=== PATIENT | female | born 1955 | race Caucasian/White ===

== ENCOUNTER 2016-09-07 13:53 | Day surgery (SDC) | payer OTHER ==
[~2016-09-07] VITALS: Ht 152.4 cm; Wt 52.2 kg
[~2016-09-07 13:53] MED LIST: 0.9% Sodium Chloride 1,000 ML IV SCH; ASA/1TAB6 PO; BENZ200C44 PO; BISA-67 PO; CHOL500050 PO; CYA1000I IM; DEXL30CA3 PO; DICL100G8 TOPICAL; EPIN0.3P17 IJ; FLUO10TA PO; FLUT12AE8 IH; FUR20 PO; HYDR-656 PO; HYOS0.1216 SL; LEVA15HF5 IH; LEVO15TA5 PO; LIDOCAINE 5% TD; LIFI1DRO OP; LORA0.5T PO; LOVA10TA PO; MELA3TAB46 PO; MIRA25TA PO; OMEG500C PO; OXYB5TAB10 PO; OXYC1TAB24 PO; PHEN-773 PO; PROP15DR27 OP; ROB500 PO; Sodium Chloride LOK Flush 10 mL Syringe IV PRN; TIZA2CAP9 PO; TOR15I IM; TRAM50TA2 PO; TROS60CA4 PO; UBID200C2 PO; [UNRECOGNIZED DRUG - CODE] MC; fentaNYL-PF 50 mCg/mL 2 mL Inj IVPUSH PRN
[2016-09-07 14:19] VITALS: BP 111/70; PULSE 68; RESP 14; O2SAT 99
[2016-09-07] MEDS ORDERED: DOXY50CA2 PO (14:56)
[2016-09-07 15:46] VITALS: BP 92/57; PULSE 62; RESP 14; O2SAT 95
[2016-09-07 15:56] VITALS: BP 97/57; PULSE 67; RESP 16; O2SAT 100
[2016-09-07 16:06] VITALS: BP 95/57; PULSE 63; RESP 16; O2SAT 98
--- NOTE | 2016-09-08 01:25 | ENDO ---
[address] [address] ENDOSCOPY PROCEDURE PATIENT: HARI GRAMAJO : 1955 MR#: [id number] ADMIT: 09/07/2016 JOB ID: [id number] DATE OF PROCEDURE: 09/07/2016 PRIMARY PROVIDER: Antwon Marquez MD. PROCEDURE: Esophagogastroduodenoscopy with biopsy. INDICATIONS: A 61-year-old female reporting for Voss's surveillance. EQUIPMENT: [id number]. SEDATION: 1. Versed 7 mg. 2. Fentanyl 125 mcg. COMPLICATIONS: None identified. PROCEDURE INFORMATION: After the risks and benefits were explained, written and verbal informed consent was obtained. The patient was brought into the endoscopy suite and placed into the left lateral decubitus position. Sedation was achieved using the above-stated medications with the addition of oxygen via nasal cannula. The scope was introduced into the mouth through the bite block and advanced to the second portion of the duodenum. The scope was slowly withdrawn to carefully examine the mucosa for any defects or lesions. Retroflexed views were accomplished in the stomach. The stomach was decompressed. The scope was removed from the patient who tolerated the procedure well. FINDINGS: 1. Duodenum: No significant pathology identified from the bulb through to the second portion. 2. Stomach: No outlet obstruction. No ulcers. No mass lesions. J-shaped stomach. Retroflexed views of the LES unremarkable. I did not appreciate any significant polyps, which was especially noteworthy in that she has previously demonstrated gastric adenoma. 3. Esophagus: The squamocolumnar junction generally correlated with the top of the gastric folds. The GEJ was judged to be at approximately 34 cm from the incisors. There were a couple of areas in the seven o'clock and one o'clock location that appeared to be ever so subtle extensions of the salmon-colored mucosa up into the tubular esophagus perhaps by a few mm. The seven o'clock location was much easier to get the forceps on, but even this was quite challenging because of the respiratory motion. The remainder of the esophagus was unremarkable. The patient does have a fairly tense upper esophageal sphincter mechanism and it was challenging for the patient to properly relax and swallow to allow us in. ENDOSCOPIC DIAGNOSES: 1. Subtle sliding hiatal hernia (not mentioned above). 2. Extremely short segment of Voss's. 3. Otherwise, visually unremarkable esophagogastroduodenoscopy. RECOMMENDATIONS: 1. Await histopathology. 2. Repeat surveillance EGD in three years if no dysplasia is identified. 3. The patient is encouraged to continue proton pump inhibitor. 4. Followup in my office on clinical efficacy.
--- NOTE | 2016-09-09 18:24 | PATH ---
SURGICAL PATHOLOGY Attending Physician:Nissa Bingham CASE STATUS: Signed Out PATIENT NAME: HARI GRAMAJO PID: [id number] : 1955 DATE COLLECTED:09/07/2016 00:00 SPECIMEN: Esophagus, Biopsy CLINICAL HISTORY: 1). GASTRO-ESOPHAGEAL JUNCTION BIOPSY FINAL DIAGNOSIS: Gastroesophageal Junction, Biopsy: Inflamed portion of columnar epithelium; negative for intestinal metaplasia/Voss's metaplasia. No dysplasia identified. No squamous mucosa identified for evaluation. ICD10: K22.7 GROSS DESCRIPTION: The specimen is received in one formalin filled container labeled with the patient's name, sublabeled " GEJ " and consists of a 0.2 x 0.2 x 0.2 CM portion of tissue which is entirely submitted in one cassette. 09/08/2016 [facility] ICD-9 CODES: CPT CODES: 1: 81449 Electronically Signed Out Veronica Johnson MD [facility]ology [facility] [address], [place] [address] Technical component performed at [facility], [address] [place] [address] Ave[address], [place], [address]
== END 2016-09-07 23:59 | disposition home or self-care (01) ==
LOC: END 13:53
PROVIDERS: ATTEND Internal Medicine Gastroenterology
DX: K22.70 Barrett's esophagus without dysplasia (principal); K44.9 Diaphragmatic hernia without obstruction or gangrene; R73.03 Prediabetes; J45.909 Unspecified asthma, uncomplicated; F41.9 Anxiety disorder, unspecified; G62.9 Polyneuropathy, unspecified; F32.9 Major depressive disorder, single episode, unspecified; K21.9 Gastro-esophageal reflux disease without esophagitis; M81.0 Age-related osteoporosis without current pathological fracture; M79.7 Fibromyalgia; Z79.51 Long term (current) use of inhaled steroids
CPT/HCPCS: 43239; 99153; J7030

== ENCOUNTER 2016-12-06 15:50 | Emergency (ER) | payer OTHER ==
[~2016-12-06] VITALS: Ht 162.6 cm; Wt 52.7 kg
[~2016-12-06 15:50] MED LIST changes: -0.9% Sodium Chloride 1,000 ML IV SCH; +DOXY50CA2 PO; +HYOS-22 SL; -HYOS0.1216 SL; -Sodium Chloride LOK Flush 10 mL Syringe IV PRN; -fentaNYL-PF 50 mCg/mL 2 mL Inj IVPUSH PRN
[2016-12-06 15:54] VITALS: BP 131/71; PULSE 77; RESP 16; O2SAT 100
[2016-12-06 17:25] LABS: BASOPHILS % (AUTO) 0.1 % (0-3); EOSINOPHILS % (AUTO) 2.3 % (0-5); MONOCYTES % (AUTO) 11.4 % (4-12); Mean Corpuscular Volume 84.6 fL (81-100); NEUTROPHILS % (AUTO) 57.6 % (40-74); Platelet Count 187 bil/L (150-400)
[2016-12-06 17:49] LABS: Lipase 28 U/L (13-60); Magnesium 2.2 mg/dL (1.6-2.6)
[2016-12-06 17:52] LABS: TROPONIN T < 0.010 ug/L (0.0-0.011)
--- NOTE | 2016-12-06 18:06 | ED.REPORT ---
HPI-General Illness Date of Service Dec 06, 2016 ED Provider: Phu Hardy MD 61 y/o female with a hx of cervical fusion, pre-diabetes, asthma and high cholesterol presents to the ED complaining of worsening dizziness for the last week. She gets these dizzy spells while she is resting and reading. The pt called [facility] complaining of "blacking out" daily and was advised to seek care. She also complains of diaphoresis for the last 2 months, which started after her upper endoscopy. She states "I get hot at night that wakes me up and I have to keep an ice bag on my neck when sleeping". The pt saw her PCP for diaphoresis and was told she is having a systemic inflammatory response. She was advised to take Ibuprofen, which did not help significantly. She also reports fatigue, high blood sugar of 162 yesterday, nausea and headache. She denies weight loss, cough, vomiting, diarrhea and fever. She had an MRI yesterday due to neck pain pain post cervical fusion surgery 2 years ago. The pt takes methocarbamol and tramadol prn. Nursing Notes Stated Complaint: DIZZINESS Chief Complaint: General Complaint Nursing Notes Reviewed: Yes Allergies: Coded Allergies: Penicillins (Verified Allergy, Unknown, 11/12/15) bee venom protein (honey bee) (Verified Allergy, Unknown, 09/04/16) metaxalone (Verified Adverse Reaction, Severe, Abdominal Pain, 11/12/15) Scheduled ([Lidocaine patch 5%]) 1 PATCH TD DAILY ASA/Salicylam/Acetaminoph/Caff (Pain Relief Tablet) 1 Each Tablet 2 EACH PO d2mgurn Bisacodyl (Dulcolax) 5 Mg Tablet.dr 5 MG PO DAILY Cholecalciferol (Vitamin D3) (Vitamin D) 50,000 Unit Capsule 50,000 UNIT PO WEEKLY Cyanocobalamin (Cyanocobalamin Injection) 1,000 Mcg/1 Ml Vial 1,000 MCG IM WEEKLY Dexlansoprazole ER (Dexilant) 30 Mg Capsule 30 MG PO BID Diclofenac Gel (Voltaren Gel) 100 Gm Tube 1 APPLIC TOPICAL QID Doxycycline Hyclate (Doxycycline Hyclate) 50 Mg Capsule 50 MG PO DAILY Fluoxetine (Fluoxetine) 10 Mg Tablet 30 MG PO DAILY Fluticasone Propionate (Flovent HFA 110 mcg) 12 Gm Aer.w.adap 1 PUFF IH BID Furosemide (Furosemide) 20 Mg Tab 20 MG PO DAILY Hyoscyamine (Hyoscyamine) 0.125 Mg Tablet 0.125 MG SL DIRECTED Levomefolate Calcium (l-Methylfolate) 15 Mg Tablet 15 MG PO DIRECTED Lifitegrast (Xiidra) 5 % Droperette 1 EACH OP BID Lovastatin (Lovastatin) 10 Mg Tablet 10 MG PO HS Mirabegron ER (Myrbetriq) 25 Mg Tablet 25 MG PO DAILY Naltrexone HCl (Naltrexone HCl) 1 Gm Powder 1 GM MC DIRECTED [place]-3 Fatty Acids (Fish Oil) 500 Mg Capsule.dr 1,000 MG PO DAILY Oxybutynin Chloride (Oxybutynin Chloride) 5 Mg Tablet 5 MG PO TID Phenazopyridine (Phenazopyridine) 100 Mg Tablet 100 MG PO TID Propylene Glycol/Peg 400 (Systane Liquid Gel Eye Drops) 15 Ml Drp.lq.gel 1 ML OP DIRECTED Tizanidine (Tizanidine) 2 Mg Capsule 1 MG PO HS Trospium Chloride ER (Trospium Chloride ER) 60 Mg Cap.er.24h 60 MG PO DAILY Ubidecarenone (Co Q-10) 200 Mg Capsule 200 MG PO DAILY Scheduled PRN Benzonatate (Benzonatate) 200 Mg Capsule 200 MG PO HS PRN PRN For Cough Epinephrine (Epinephrine) 0.3 Mg/0.3 Ml Auto.injct 0.3 MG IJ DIRECTED PRN PRN For Anaphyllaxis Ketorolac Tromethamine (Ketorolac Tromethamine) 15 Mg/1 Ml Vial 15 MG IM QID PRN PRN For Pain Levalbuterol Tartrate (Xopenex Hfa) 15 Gm Hfa.aer.ad 1 PUFF IH Q4 PRN PRN For Shortness of Breath Lorazepam (Lorazepam) 0.5 Mg Tablet 0.5 MG PO TID PRN PRN For Anxiety Melatonin (Melatonin) 3 Mg Tab.rapdis 3 MG PO HS PRN PRN Insomnia Methocarbamol (Methocarbamol) 500 Mg Tablet 500-1,000 MG PO DIRECTED PRN PRN For Pain Tramadol (Tramadol) 50 Mg Tablet 25 MG PO Q6H PRN PRN For Pain hydrOXYzine Hcl (HydrOXYzine Hcl) 25 Mg Tablet 25 MG PO DAILY PRN PRN For Itching oxyCODONE-Acetaminophen 5-325 mg (oxyCODONE-Acetaminophen 5-325 mg) 1 Each Tablet 1-2 TAB PO Q6H PRN PRN For Pain General Time Seen by MD: 18:05 Chief Complaint Dizziness Hx Obtained From: Patient Arrived By: Walk-in Sudden in Onset?: Yes Onset Occurred: 1 week ago Symptom Duration: Since onset Severity: Current: No pain currently Severity: Maximum: No pain Recent Healthcare: No recent doctor visit Similar Sx Previous: No Past Medical History Past Medical History Voss's esophagus IBS Osteoporosis Squamous cell carcinoma States "In my 20s, I probably had a TIA" Reports: Asthma, GERD Past Surgical History Left oophorectomy Appendectomy Left salpingectomy (occured years after the oophorectomy) Exploratory laparotomy Anterior cervical discetomy and fusion Multiple skin cancer removal Smoking History Former Smoker Social History Alcohol Use: "Social" Drug Use: Denies drug use Other Social History: Good social support, Ambulatory Status Independent Review of Systems Reports: hyperglycemia Denies: weightloss Full Review of Systems Constitutional: Reports: Fatigue, Denies: Fever Respiratory: Denies: Non-productive cough GI: Reports: Nausea, Denies: Diarrhea, Vomiting Skin: Reports Diaphoresis Neurologic: Reports: Dizziness, Headache Complete sys rev & neg: except as marked. Physical Exam Vital Signs Vital Signs Date Time Temp Pulse Resp B/P Pulse Ox O2 Delivery O2 Flow Rate FiO2 12/06/16 18:44 89 16 111/79 99 Room Air 12/06/16 15:54 36.6 77 16 131/71 100 Room Air Initial VS: Reviewed Head / Eyes: Atraumatic, Normocephalic Neck: Supple, Non-tender, Full range of motion Respiratory: Breath sounds normal, Clear to auscultation, No respiratory distress Cardiovascular: Regular rate & rhythm, Heart sounds normal, Intact distal pulses Extremities: Vascular intact, Neuro intact, No swelling, No tenderness Skin: Warm, Dry, No cyanosis Neurologic: Alert, Oriented, Nonfocal General/Constitutional: Awake, Alert, No acute distress, Cooperative Interpretation & Diagnostics Lab Results Interpretation Result Diagram: 12/06/16 1720 12/06/16 1720 Test 12/06/16 17:20 12/06/16 17:30 White Blood Count 6.9th/mm3 (3.8-10.1) Red Blood Count 4.86mil/mm3 (3.90-5.20) Hemoglobin 14.1g/dL (12.0-15.6) Hematocrit 41.1% (35.0-46.0) Mean Corpuscular Volume 84.6fL (81-100) Mean Corpuscular Hemoglobin 29.0pg (27.0-35.0) Mean Corpuscular Hemoglobin Concent 34.3% (32.0-37.0) Red Cell Distribution Width 12.1% (12.3-15.4) Platelet Count 187bil/L (150-400) Neutrophils (%) (Auto) 57.6% (40-74) Lymphocytes (%) (Auto) 28.5% (14-46) Monocytes (%) (Auto) 11.4% (4-12) Eosinophils (%) (Auto) 2.3% (0-5) Basophils (%) (Auto) 0.1% (0-3) Sodium Level 138mEq/L (134-144) Potassium Level 3.7mEq/L (3.5-5.2) Chloride Level 99mEq/L (97-108) Carbon Dioxide Level 22mmol/L (18-29) Blood Urea Nitrogen 23mg/dL (8-27) Creatinine 0.53mg/dL (0.57-1.00) Estimat Glomerular Filtration Rate 167mL/min (>59) Glucose Level 92mg/dL (60-99) Calcium Level 9.5mg/dL (8.5-10.1) Magnesium Level 2.2mg/dL (1.6-2.6) Total Bilirubin 1.0mg/dL (0.0-1.2) Aspartate Amino Transf (AST/SGOT) 23U/L (0-50) Alanine Aminotransferase (ALT/SGPT) 12U/L (0-32) Alkaline Phosphatase 70U/L (25-165) Troponin T < 0.010ug/L (0.0-0.011) Pro-B-Type Natriuretic Peptide 97.91pg/mL (0-287) Total Protein 7.2g/dL (6.4-8.4) Albumin 4.1g/dL (3.4-5.0) Lipase 28U/L (13-60) Thyroid Stimulating Hormone (TSH) 0.798uIU/mL (0.450-4.500) Hold Matta Top Tube Received (Received) Urine Color Yellow (YELLOW) Urine Appearance Clear (CLEAR,HAZY) Urine pH 6.0 (5.0-8.0) Urine Specific [place] 1.015 (1.003-1.035) Urine Protein Negativemg/dL (NEG,TRACE) Urine Glucose (UA) Negativemg/dL (NEGATIVE) Urine Ketones Negativemg/dL (NEGATIVE) Urine Occult Blood Trace (NEGATIVE) Urine Nitrite Negative (NEGATIVE) Urine Bilirubin Negative (NEGATIVE) Urine Urobilinogen Normalmg/dL (NORMAL) Urine Leukocyte Esterase Trace (NEGATIVE) Urine RBC 0-2/hpf (0-2) Urine WBC 0-5/hpf (0-5) Urine Epithelial Cells Few/hpf (NONE-MOD) Urine Crystals None seen (NONE SEEN) Urine Bacteria None/hpf (NONE-FEW) Urine Hyaline Casts None/lpf (NONE) Urine Granular Casts None seen (NONE SEEN) Urine Waxy Casts None seen (NONE SEEN) Urine Red Blood Cell Casts None seen (NONE SEEN) Urine White Blood Cell Casts None seen (NONE SEEN) Urine Mucus None seen (None Seen) Urine Trichomonas None seen (NONE SEEN) Urine Yeast None (NONE SEEN) Urinalysis Comment None Urine Culture Reflexed Indicated ECG Interpretation ECG Interpretation: ECG done at urgent care at 15:31 today: Normal sinus rhythm. Rate 63. Prominent R (V1) non-specific Time: 15:31 Interpreted by: ED physician ECG Interpretation: Normal sinus rhythm. Rate 61. Time: 18:55 Interpreted by: ED physician Repeat ECG: Repeat ECG unchanged Re-Eval/Medical Decision Time of Eval: 19:38 Patient Status: Condition improved Re-Evaluation/Progress Note: Rechecked pt. Discussed lab results, diagnosis and plan to discharge. Pt understands and agrees with the plan. F/U instructions and RTER warning given. All questions addressed. Counseled Regarding: Diagnosis, Lab results, Need for follow-up, When/why to return to ED Discharge & Departure Primary Impression: Near syncope Disposition: Home Discharge Condition All VS Reviewed: Yes Condition: Stable Patient Instructions: Near Syncope (ED) Additional Instructions: Thank you for entrusting us with your care today. Your lab results were reassuring. No dangerous cause of your symptoms is found. Follow up with your primary care provider in 2-3 days for further evaluation. Return to the emergency department in case of worsening dizziness, loss of consciousness or any other new or worsening symptoms. Referrals: Antwon Marquez MD (PCP) Scribe Attestation Portions of this note were transcribed by Brian Shukla. I,, personally performed the history, physical exam and medical decision-making;I reviewed and confirmed the accuracy of the information in the transcribed note. Signed by Dayna Kaba. 12/06/16 20:20 copies to: Antwon Marquez MD, Kirk H MD Dec 06, 2016 18:06 Brian Shukla Dec 06, 2016 18:31
[2016-12-06 18:44] VITALS: BP 111/79; PULSE 89; RESP 16; O2SAT 99
[2016-12-06 19:13] LABS: APPEARANCE,URINE CLEAR (CLEAR,HAZY); COLOR,URINE YELLOW (YELLOW)
[2016-12-06 19:14] LABS: OCCULT BLOOD,URINE TRACE (NEGATIVE); UROBILINOGEN,URINE NORMAL (NORMAL)
[2016-12-06 20:21] VITALS: BP 111/79; PULSE 89; RESP 16; O2SAT 99
== END 2016-12-06 20:22 | disposition home or self-care (01) ==
LOC: SED 15:50
DX: R55 Syncope and collapse (principal); R61 Generalized hyperhidrosis; R53.83 Other fatigue; R11.0 Nausea; R51 Headache; J45.909 Unspecified asthma, uncomplicated; K21.9 Gastro-esophageal reflux disease without esophagitis; F17.200 Nicotine dependence, unspecified, uncomplicated; R73.03 Prediabetes; Z91.030 Bee allergy status; Z88.8 Allergy status to other drugs, medicaments and biological substances; Z88.0 Allergy status to penicillin